=== PATIENT | female | born 1945 | race Hispanic/Latino ===

== ENCOUNTER 2018-02-09 08:20 | Day surgery (SDC) | payer MEDICARE ==
[2018-02-01 10:12] VITALS: BMI 32.5
[2018-02-09] MEDS ORDERED: Propofol 10 mg/ml Inj (20 ML) ONE (10:14)
[2018-02-09] MEDS ORDERED: Lidocaine 1% Inj (20ml) ONE (10:15)
[2018-02-09] MEDS ORDERED: ePHEDrine 50 mg/ml Inj ONE (10:16)
[2018-02-09] MEDS ORDERED: Sodium Chloride 0.9% 1,000 ML IV SCH (11:15)
[2018-02-09 13:19] VITALS: BP 152/74; PULSE 66; RESP 18; TEMP 97.6; O2SAT 96
== END 2018-02-09 12:32 | disposition home or self-care (01) ==
LOC: ENDO 08:20
PROVIDERS: ATTEND Internal Medicine Gastroenterology
DX: K21.0 Gastro-esophageal reflux disease with esophagitis (principal); K29.50 Unspecified chronic gastritis without bleeding; K44.9 Diaphragmatic hernia without obstruction or gangrene; K31.9 Disease of stomach and duodenum, unspecified; I10 Essential (primary) hypertension
CPT/HCPCS: 43239; 82948; 88305; 88342; J2704; J7040 ×2